=== PATIENT | female | born 1950 | race Caucasian/White ===

== ENCOUNTER → 2016-10-13 | Outpatient (CLI) | payer BC | LOC: FIMAGING 15:05 | DX: Z12.31 Encounter for screening mammogram for malignant neoplasm of breast (principal) | CPT/HCPCS: G0202 ==

== ENCOUNTER → 2017-02-17 | Outpatient (CLI) | payer OTHER, MEDICARE | LOC: BHLMT 10:45 | PROVIDERS: ATTEND Internal Medicine Interventional Cardiology | DX: I71.9 Aortic aneurysm of unspecified site, without rupture (principal) | CPT/HCPCS: 93306-PO ==

== ENCOUNTER → 2017-10-28 | Outpatient (CLI) | payer OTHER, MEDICARE | LOC: FIMAGING 10:54 | PROVIDERS: ATTEND Internal Medicine | DX: Z12.31 Encounter for screening mammogram for malignant neoplasm of breast (principal) ==

== ENCOUNTER → 2018-08-10 | Outpatient (CLI) | payer OTHER, MEDICARE | LOC: BHLMT 10:00 | PROVIDERS: ATTEND Internal Medicine Cardiovascular Disease | DX: I71.9 Aortic aneurysm of unspecified site, without rupture (principal) ==

== ENCOUNTER → 2018-12-01 | Outpatient (CLI) | payer OTHER, MEDICARE | LOC: FIMAGING 09:53 ==